=== PATIENT | female | born 1960 | race African-American/Black ===

== ENCOUNTER 2022-05-29 09:10 | Inpatient (IN) | payer OTHER ==
[~2022-05-29] VITALS: Ht 154.9 cm; Wt 55.3 kg
[2022-05-29 10:01] LABS: BASOPHILS % 1.6 % (0.0-2.0); EOSINOPHILS % 3.6 % (0.0-5.0); HEMATOCRIT. 41.8 % (36.0-48.0); HEMOGLOBIN. 13.9 g/dL (12.0-16.0); LYMPHOCYTES % 30.1 % (20.0-50.0); MEAN CORPUSCULAR HEMOGLOBIN 30.7 pg (28.0-32.0); MEAN CORPUSCULAR VOLUME 92.1 fL (81.0-99.0); MEAN PLATELET VOLUME 9.6 fl (7.4-10.4); MONOCYTES % 7.3 % (2.0-8.0); NEUTROPHILS % 57.4 % (40.0-76.0); PLATELET 320 x1000/uL (130-400); RED BLOOD CELL COUNT 4.53 mill/uL (4.2-5.4); RED CELL DISTRIBUTION WIDTH 13.7 % (11.6-14.6)
[2022-05-29 10:25] LABS: INR 0.9; PROTHROMBIN TIME 10.1 sec (9.6-11.0)
[2022-05-29 10:47] LABS: CHLORIDE 112 mEq/L (98-107)
[2022-05-29 14:10] VITALS: BP 130/74
[2022-05-29] MEDS ORDERED: ASPIRIN 81MG TABLET PO NR (14:30)
[2022-05-29] MEDS ORDERED: CLOPIDOGREL 75MG TABLET PO NR (14:30)
[2022-05-29 16:00] VITALS: BP 133/71
[2022-05-29] MEDS: ISOSORBIDE DINITRATE 20MG TABLET PO SCH (17:49)
[2022-05-29 18:00] VITALS: BP 139/71
[2022-05-29] MEDS ORDERED: DEXTROSE 50% WATER 50ML SYRINGE IV PRN ×2 (18:30→18:45)
[2022-05-29] MEDS ORDERED: IPRATROPIUM/ALBUTEROL 0.5-3(2.5)MG/3ML NEB HHN PRN (18:45)
[2022-05-29] MEDS ORDERED: ACETAMINOPHEN 325MG TABLET PO PRN (18:45)
[2022-05-29] MEDS ORDERED: ONDANSETRON HCL 4MG/2ML INJ IV PRN (18:45)
[2022-05-29 19:00] VITALS: BP 149/82
[2022-05-29 20:00] VITALS: BP 112/68
[2022-05-29] MEDS: ATORVASTATIN CALCIUM 20MG TABLET PO SCH (20:50)
[2022-05-29] MEDS: AMLODIPINE 5MG TABLET PO SCH (20:50)
[2022-05-29] MEDS: BLOOD SUGAR DIAGNOSTIC STRIP TEST SCH (20:50)
[2022-05-29] MEDS: INSULIN LISPRO 100 UNITS/ML SUBCUT SCH (20:51)
[2022-05-29] MEDS ORDERED: INSULIN LISPRO 100 UNITS/ML SUBCUT SCH (21:00)
[2022-05-29] MEDS ORDERED: BLOOD SUGAR DIAGNOSTIC STRIP TEST SCH (21:00)
[2022-05-29 22:00] VITALS: BP 107/58
[2022-05-30] VITALS (9 sets, daily range): BP systolic 106–149; BP diastolic 58–89
[2022-05-30] MEDS: INSULIN LISPRO 100 UNITS/ML SUBCUT SCH ×4 (08:00→20:10)
[2022-05-30] MEDS: BLOOD SUGAR DIAGNOSTIC STRIP TEST SCH ×4 (08:11→20:10)
[2022-05-30] MEDS: ISOSORBIDE DINITRATE 20MG TABLET PO SCH ×2 (08:49→17:26)
[2022-05-30] MEDS: LOSARTAN POTASSIUM 50 MG TABLET PO SCH (08:49)
[2022-05-30] MEDS: AMLODIPINE 5MG TABLET PO SCH ×2 (08:50→20:10)
[2022-05-30] MEDS ORDERED: DIPHENHYDRAMINE 50MG/ML VIAL ONE (12:43)
[2022-05-30] MEDS ORDERED: LIDOCAINE HCL 1% 20ML VIAL (Pyxis) INJ ONE (12:43)
[2022-05-30] MEDS ORDERED: IODIXANOL 320MG/ML 100 ML BOTTLE IV ONE (12:43)
[2022-05-30] MEDS ORDERED: HEPARIN 1000 UNITS/ML 10ML ONE (12:43)
[2022-05-30] MEDS ORDERED: FENTANYL CITRATE/PF 50MCG/ML 2ML VIAL ONE (13:16)
[2022-05-30] MEDS ORDERED: MIDAZOLAM HCL 2 MG/2 ML VIAL ONE (13:16)
[2022-05-30] MEDS ORDERED: IODIXANOL 320 MG/ML 150ML BOTTLE IV ONE (14:02)
[2022-05-30] MEDS ORDERED: ASPIRIN 325MG EC TABLET PO ONE (14:27)
[2022-05-30] MEDS ORDERED: CLOPIDOGREL 75MG TABLET ONE (14:27)
[2022-05-30] MEDS ORDERED: ACETAMINOPHEN 325MG TABLET PO PRN (15:30)
[2022-05-30] MEDS ORDERED: ATROPINE SULFATE 1MG/10ML SYR IV PRN (15:30)
[2022-05-30] MEDS: SODIUM CHLORIDE 0.45% 1,000 ML IV SCH (17:20)
[2022-05-30] MEDS: ATORVASTATIN CALCIUM 20MG TABLET PO SCH (20:09)
[2022-05-31] MEDS: SODIUM CHLORIDE 0.45% 1,000 ML IV SCH ×2 (00:28→08:29)
[2022-05-31 00:29] VITALS: BP 114/65
[2022-05-31 04:00] VITALS: BP 131/58
[2022-05-31] MEDS: BLOOD SUGAR DIAGNOSTIC STRIP TEST SCH (06:50)
[2022-05-31 06:55] LABS: BASOPHILS % 1.2 % (0.0-2.0); EOSINOPHILS % 4.2 % (0.0-5.0); HEMATOCRIT. 34.4 % (36.0-48.0); HEMOGLOBIN. 11.7 g/dL (12.0-16.0); LYMPHOCYTES % 28.4 % (20.0-50.0); MEAN CORPUSCULAR HEMOGLOBIN 31.5 pg (28.0-32.0); MEAN CORPUSCULAR VOLUME 92.8 fL (81.0-99.0); MEAN PLATELET VOLUME 8.4 fl (7.4-10.4); MONOCYTES % 7.6 % (2.0-8.0); NEUTROPHILS % 58.6 % (40.0-76.0); PLATELET 251 x1000/uL (130-400); RED BLOOD CELL COUNT 3.71 mill/uL (4.2-5.4); RED CELL DISTRIBUTION WIDTH 13.4 % (11.6-14.6)
[2022-05-31 06:56] LABS: CHLORIDE 110 mEq/L (98-107)
[2022-05-31] MEDS: INSULIN LISPRO 100 UNITS/ML SUBCUT SCH (07:04)
[2022-05-31 08:00] VITALS: BP 123/68
[2022-05-31] MEDS: LOSARTAN POTASSIUM 50 MG TABLET PO SCH (08:29)
[2022-05-31] MEDS: AMLODIPINE 5MG TABLET PO SCH (08:29)
[2022-05-31] MEDS: ISOSORBIDE DINITRATE 20MG TABLET PO SCH (08:29)
[2022-05-31 11:26] VITALS: BP 128/65
[2022-05-31] MEDS ORDERED: ASPI-864 MT (11:58)
[2022-05-31] MEDS ORDERED: CLOP-31 MT (12:00)
== END 2022-05-31 11:50 | disposition home or self-care (01) | DRG 175 ==
LOC: ER 10:14 → 5EST 11:29 → EDBEDREQSVC 11:31 → EDBEDREQTM 11:31 → EDBEDREQ 11:31 → 5EST 14:20 → 3WST 05-30 15:33
PROVIDERS: ADMIT Internal Medicine; ATTEND Internal Medicine
PROC: 027034Z Dilation of Coronary Artery, One Artery with Drug-eluting Intraluminal Device, Percutaneous Approach (ICD-10-PCS; principal; 2022-05-30)
PROC: 4A023N7 Measurement of Cardiac Sampling and Pressure, Left Heart, Percutaneous Approach (ICD-10-PCS; 2022-05-30)
PROC: B2111ZZ Fluoroscopy of Multiple Coronary Arteries using Low Osmolar Contrast (ICD-10-PCS; 2022-05-30)
PROC: B2131ZZ Fluoroscopy of Multiple Coronary Artery Bypass Grafts using Low Osmolar Contrast (ICD-10-PCS; 2022-05-30)
PROC: 3E073GC Introduction of Other Therapeutic Substance into Coronary Artery, Percutaneous Approach (ICD-10-PCS; 2022-05-30)
DX: I25.110 Atherosclerotic heart disease of native coronary artery with unstable angina pectoris (principal); E11.9 Type 2 diabetes mellitus without complications; E78.5 Hyperlipidemia, unspecified; I10 Essential (primary) hypertension; Z20.822 Contact with and (suspected) exposure to COVID-19; Z88.0 Allergy status to penicillin; Z90.710 Acquired absence of both cervix and uterus; I25.2 Old myocardial infarction; Z90.49 Acquired absence of other specified parts of digestive tract; Z82.49 Family history of ischemic heart disease and other diseases of the circulatory system; Z79.82 Long term (current) use of aspirin
CPT/HCPCS: 36415; 71045; 80048; 80053; 82962; 83036; 83880; 84484; 85025; 85347; 87426; 92928; 93005; 93306; 93458; 99291; C1725; C1760; C1769; C1874; C1887; C1893; C1894; J1200; J1644; J2250; J3010; J3490; Q9967